=== PATIENT | male | born 1980 | race Caucasian/White ===

== ENCOUNTER 2017-01-03 09:00 | Day surgery (SDC) | payer OTHER ==
[~2017-01-03] VITALS: Ht 180.3 cm; Wt 84.0 kg
[2017-01-03] MEDS ORDERED: ONDANSETRON HCL 4MG/2ML VIAL IV STA (09:38)
[2017-01-03] MEDS ORDERED: MORPHINE SULFATE 4 MG/ML CPJ (NOT FOR IM USE) IV STA (09:38)
[2017-01-03 09:59] LABS: HEMATOCRIT. 42.8 % (42.0-52.0); HEMOGLOBIN. 15.1 g/dL (14.0-18.0); MEAN CORPUSCULAR HEMOGLOBIN 29.7 pg (28.0-32.0); MEAN CORPUSCULAR VOLUME 83.9 fL (80.0-94.0); MEAN PLATELET VOLUME 8.1 fl (7.4-10.4); PLATELET 239 x1000/uL (130-400); RED CELL DISTRIBUTION WIDTH 12.8 % (11.6-14.6)
[2017-01-03 10:06] LABS: CHLORIDE 104 mEq/L (98-107)
[2017-01-03 10:10] LABS: CARBON DIOXIDE 24 mEq/L (21-32)
[2017-01-03 10:11] LABS: INR 1.1; PROTHROMBIN TIME 11.4 sec (9.4-11.6)
[2017-01-03] MEDS ORDERED: SODIUM CHLORIDE 0.9% 1,000 ML IV ONE (10:55)
[2017-01-03] MEDS ORDERED: METOCLOPRAMIDE HCL 10MG/2ML VIAL IV ONE (11:00)
[2017-01-03] MEDS ORDERED: IOHEXOL-300 100 ML BOTTLE ONE (11:11)
[2017-01-03 11:39] LABS: ATYPICAL LYMPHOCYTES 1; PLATELET ESTIMATE NORMAL
[2017-01-03] MEDS ORDERED: MORPHINE SULFATE 4 MG/ML CPJ (NOT FOR IM USE) IV ONE (12:00)
[2017-01-03] MEDS ORDERED: PIPERACILLIN/TAZ 3.375G PREMIX 50 ML IV NR (12:00)
[2017-01-03] MEDS ORDERED: DEXT 5%/0.45% NACL 1000ML 1,000 ML IV SCH (12:20)
[2017-01-03] MEDS ORDERED: PIPERACILLIN/TAZ 3.375G PREMIX 50 ML IV SCH (12:30)
[2017-01-03] MEDS ORDERED: MORPHINE SULFATE 4 MG/ML CPJ (NOT FOR IM USE) IV PRN ×3 (12:30→23:00)
[2017-01-03] MEDS ORDERED: DOCUSATE SODIUM 100MG CAPSULE PO PRN (12:30)
[2017-01-03] MEDS ORDERED: ENOXAPARIN 40MG/0.4ML SYR SUBCUT SCH (12:30)
[2017-01-03] MEDS ORDERED: CLONIDINE 0.1MG TABLET PO PRN (12:30)
[2017-01-03] MEDS ORDERED: GUAIFENESIN 200MG/10ML SUGAR FREE UDC PO PRN (12:30)
[2017-01-03] MEDS ORDERED: HYDROCODONE/ACETAMINOPHEN 5/325MG TABLET PO PRN ×3 (12:30→23:00)
[2017-01-03] MEDS ORDERED: ONDANSETRON HCL 4MG/2ML VIAL IV PRN ×3 (12:30→23:00)
[2017-01-03] MEDS ORDERED: MAGNESIUM/ALUMINUM HYDROXIDE/SIMETHICONE 30ML UDC PO PRN (12:30)
[2017-01-03] MEDS ORDERED: ACETAMINOPHEN 325MG TABLET PO PRN ×2 (12:30→23:00)
[2017-01-03] MEDS ORDERED: LORAZEPAM 2MG/ML CPJ IV PRN (12:30)
[2017-01-03] MEDS ORDERED: IPRATROPIUM/ALBUTEROL 0.5-3(2.5)MG/3ML NEB INH PRN (12:30)
[2017-01-03 12:38] VITALS: BP 135/81
[2017-01-03] MEDS ORDERED: DEXT 5%/0.45% NACL KCL 20MEQ/L 1,000 ML IV SCH (13:01)
[2017-01-03] MEDS ORDERED: BUPIVACAINE HCL 0.5% (5MG/ML) 50ML ONE (13:04)
[2017-01-03] MEDS ORDERED: SKIN ADHESIVE 0.7 GM EA TOP ONE (13:08)
[2017-01-03] MEDS ORDERED: HYDROMORPHONE HCL/PF 2MG/ML CPJ IV PRN (13:45)
[2017-01-03] MEDS ORDERED: LABETALOL HCL 20MG/4ML CARPUJECT IV PRN (13:45)
[2017-01-03] MEDS ORDERED: MEPERIDINE HCL/PF 25MG/ML CPJ IV PRN (13:45)
[2017-01-03] MEDS ORDERED: NA PHOS,M-B/NA PHOS,DI-BA ENEMA 118ML PR PRN (23:00)
[2017-01-04] MEDS ORDERED: SODIUM CHLORIDE 0.9% INJ 3ML FLUSH IVF SCH (06:00)
== END 2017-01-03 14:15 | disposition home or self-care (01) ==
LOC: ER 09:43 → UNDOADMIN 12:17 → ORIP 12:17 → OR 12:18
PROVIDERS: ATTEND Surgery
DX: K35.89 Other acute appendicitis (principal); I10 Essential (primary) hypertension; J45.909 Unspecified asthma, uncomplicated
CPT/HCPCS: 36415; 44970; 74177; 80053; 83690; 85025; 85610; 88304; 96374; 96375; 99285; G0168; J2270; J2405; J2543; J2765; J3490; J7030; Q9967